=== PATIENT | female | born 1995 | race Caucasian/White ===

== ENCOUNTER 2017-12-11 14:34 | Emergency (ER) | payer MEDICAID ==
[2017-12-11] MEDS: ACETAMINOPHEN 500 MG TAB PO (15:22)
== END 2017-12-11 16:36 | disposition home or self-care (01) ==
LOC: FTE 14:34
DX: S50.811A Abrasion of right forearm, initial encounter (principal); S20.91XA Abrasion of unspecified parts of thorax, initial encounter; V89.2XXA Person injured in unspecified motor-vehicle accident, traffic, initial encounter
CPT/HCPCS: 71045; 73090-RT; 99284-25

== ENCOUNTER 2019-07-09 16:39 | Emergency (ER) | payer MEDICAID ==
[2019-07-09] MEDS: KETOROLAC 30 MG INJ IM (19:06)
[2019-07-09] MEDS: CEFTRIAXONE 1 GM INJ IM (19:31)
[2019-07-09] MEDS: LIDOCAINE 1% (MDV) 20 ML INJ SC (19:32)
== END 2019-07-09 20:07 | disposition home or self-care (01) ==
LOC: FTE 16:39
DX: N12 Tubulo-interstitial nephritis, not specified as acute or chronic (principal)
CPT/HCPCS: 81003; 81025; 96372; 99284-25